=== PATIENT | male | born 1985 | race Caucasian/White ===

== ENCOUNTER 2018-01-21 23:34 | Emergency (ER) | payer OTHER ==
[2018-01-22] MEDS: OXYCODONE/ACETAMINOPHEN (10/325) TAB PO (01:13)
== END 2018-01-22 02:00 | disposition home or self-care (01) ==
LOC: FTE 23:34
DX: M54.2 Cervicalgia (principal); G89.29 Other chronic pain
CPT/HCPCS: 99283; Z7502

== ENCOUNTER 2018-01-23 03:45 | Emergency (ER) | payer OTHER ==
[2018-01-23] MEDS: KETOROLAC 30 MG INJ IM (04:21)
== END 2018-01-23 04:20 | disposition home or self-care (01) ==
LOC: FTE 03:45
DX: M54.2 Cervicalgia (principal); G89.29 Other chronic pain
CPT/HCPCS: 99282; Z7502